=== PATIENT | female | born 1930 | race Caucasian/White ===

== ENCOUNTER 2017-12-28 19:45 | Inpatient (IN) | payer OTHER, MEDICARE ==
--- NOTE | 2017-12-28 19:48 | PDOC ---
History of Present Illness - General History Source: Patient Exam Limitations: No Limitations - History of Present Illness Initial Comments: 12/28/17 21:05 The patient is a 87 year old female brought via EMS and presenting with patient care manager, with a significant past medical history of right hip replacement, who presents to the ED after a fall 4 hours prior to presentation. She notes that she landed on her left side. On baseline the patient does ambulate with a walker but she notes that she was not able to get up on her own and has not been able to ambulate due to the pain. She denies any dizziness or tripping. She denies any head trauma, loss of consciousness or any other kind of injuries. The patient denies chest pain, shortness of breath, headache and dizziness. Denies fever, chills, nausea, vomiting, diarrhea or constipation. Denies dysuria , frequency, urgency and hematuria. Allergies: None Past surgical history: Right hip replacement Social History: No alcohol, tobacco or drug use reported PMD: Dr. Zachery Meek <Dev Miranda - Last Filed: 12/28/17 22:06> <Vivien Baker - Last Filed: 12/29/17 00:00> - General Chief Complaint: Injury Stated Complaint: FALL Time Seen by Provider: 12/28/17 19:48 Past History <Dev Miranda - Last Filed: 12/28/17 22:06> <Vivien Baker - Last Filed: 12/29/17 00:00> - Past Medical History Allergies/Adverse Reactions: Allergies Allergy/AdvReac Type Severity Reaction Status Date / Time No Known Allergies Allergy Unverified 12/28/17 19:46 Home Medications: Ambulatory Orders Aspirin [Ecotrin] 81 mg PO DAILY 12/28/17 Ibuprofen 400 mg PO ONCE 12/28/17 Review of Systems - Review of Systems Able to Perform ROS?: Yes Comments:: 12/28/17 21:04 GENERAL/CONSTITUTIONAL: No fever or chills. No weakness. HEAD, EYES, EARS, NOSE AND THROAT: No change in vision. No ear pain or discharge. No sore throat. GASTROINTESTINAL: No nausea, vomiting, diarrhea or constipation. GENITOURINARY: No dysuria, frequency, or change in urination. CARDIOVASCULAR: No chest pain or shortness of breath. RESPIRATORY: No cough, wheezing, or hemoptysis. MUSCULOSKELETAL: (+) Left hip pain. No neck or back pain. SKIN: No rash NEUROLOGIC: No headache, vertigo, loss of consciousness, or change in strength/ sensation. ENDOCRINE: No increased thirst. No abnormal weight change. HEMATOLOGIC/LYMPHATIC: No anemia, easy bleeding, or history of blood clots. ALLERGIC/IMMUNOLOGIC: No hives or skin allergy. <Dev Miranda - Last Filed: 12/28/17 22:06> *Physical Exam - Vital Signs Last Vital Signs Temp Pulse Resp BP Pulse Ox 97.8 F 88 16 121/84 100 12/28/17 19:48 12/28/17 19:48 12/28/17 19:48 12/28/17 19:48 12/28/17 19:48 - Physical Exam Comments: 12/28/17 21:04 Constitutional: Awake, alert, oriented. No acute distress. Head: Normocephalic. Atraumatic Eyes: PERRL. EOMI. Conjunctivae are not pale. ENT: Mucous membranes are moist and intact. Posterior pharynx without exudates or erythema. Uvula midline. Neck: Supple. Full ROM. No lymphadenopathy. Cardiovascular: Regular rate. Regular rhythm. S1, S2 regular. Distal pulses are 2+ and symmetric. Pulmonary/Chest: No evidence of respiratory distress. Clear to auscultation bilaterally No wheezing, rales or rhonchi. Abdominal: Soft and non-distended. There is no tenderness. No rebound, guarding or rigidity. No organomegaly. No palpable masses. Good bowel sounds. Back: No CVA tenderness. Musculoskeletal: (+) Left leg externally rotated and shortened, moderate tenderness to the anterior hip. 2+ Edema to mid anterior tibia surface bilaterally. No cyanosis. No clubbing. Nocalf tenderness. Radial/pedal pulses are intact and 2+ bilaterally Skin: Skin is warm and dry. No petechiae. No purpura. Neurological: Alert and oriented to person, place, and time. Cranial nerves II -XII are grossly intact. Normal speech. Strength is grossly symmetric. No sensory deficits. Psychiatric: Good eye contact. Normal interaction, affect and behavior. <Dev Miranda - Last Filed: 12/28/17 22:06> ED Treatment Course - LABORATORY CBC & Chemistry Diagram: 12/28/17 21:10 12/28/17 21:10 <Dev Miranda - Last Filed: 12/28/17 22:06> - LABORATORY CBC & Chemistry Diagram: 12/28/17 21:10 12/28/17 21:10 <Vivien Baker - Last Filed: 12/29/17 00:00> Progress Note - Progress Note Progress Note: Documentation has been prepared under my direction and personally reviewed by me in its entirety. I attest that this documented accurately reflects all work, treatment, procedures and medical decision making performed by me. <Vivien Baker - Last Filed: 12/29/17 00:00> Medical Decision Making - Medical Decision Making 12/28/17 23:48 As noted above, this 87-year-old woman presents with history of falling at home , impacting left hip area; this occurred approximately 4 PM earlier today. After the injury, patient was unable to weight-bear secondary to pain in her left hip area and there was no LOC; patient who was alert and oriented 3 denies headache, neck pain, chest or abdominal pain. Exam as noted Left hip/pelvis x-ray confirms a femoral neck fracture with varus deformity. Portable chest x-ray shows evidence of chronic interstitial changes; no infiltrate or effusions present. There is density of unclear etiology present in the lateral aspect of the right upper lobe. Electrocardiogram performed interpreted by me: Normal sinus rhythm at 76 bpm, intervals, axis and wave forms are all normal; no evidence of acute ST or T- wave abnormalities. Laboratory evaluation notable for white blood cell count of 14,900 with a predominance of neutrophils. The remainder of the CBC is normal. INR is also normal at 1.06. Chemistry profile is essentially normal except for evidence of mild prerenal azotemia with a BUN of 25 and creatinine 0.7. Urinalysis microscopic notable for 25 WBC, 25 RBC, 1+ bacteria. Urine sent for C&S Results discussed with the patient. She was initially unsure whether she would would consent to admission and surgery here; she asked for to be informed of her injury. She subsequently spoke to Dr. Meek by telephone and then consented for admission and treatment. Patient admitted to Dr.Yurkiw álvarez, [facility]. Case discussed with Dr.Oh of orthopedic service. Dr. Ledbetter will see patient in the morning. She should be NPO after midnight <Vivien Baker - Last Filed: 12/29/17 00:00> *DC/Admit/Observation/Transfer - Attestations Scribe Attestion: 12/28/17 21:05 Documentation prepared by Dev Miranda, acting as medical claims examiner for Vivien Baker MD <Dev Miranda - Last Filed: 12/28/17 22:06> - Discharge Dispostion Decision to Admit order: Yes <Viiven Baker - Last Filed: 12/29/17 00:00> Diagnosis at time of Disposition: Hip fracture Qualifiers: Encounter type: initial encounter Fracture type: closed Laterality: left Qualified Code(s): S72.002A - Fracture of unspecified part of neck of left femur , initial encounter for closed fracture - Discharge Dispostion Condition at time of disposition: Guarded
[2017-12-28] MEDS ORDERED: ACETAMINOPHEN 325 MG TABLET (FP) PO ONE (21:01)
[2017-12-28] MEDS ORDERED: ACETAMINOPHEN 325 MG TABLET (FP) ONE (21:03)
[2017-12-28 21:33] LABS: HEMATOCRIT 38.7 % (32.4-45.2); HEMOGLOBIN 12.9 GM/dl (10.7-15.3); MCHC 33.3 g/dl (32.0-36.0); MEAN PLT VOLUME 8.4 fl (7.5-11.1); PLATELET COUNT 268 K/MM3 (134-434); RDW 14.3 % (11.6-15.6); WHITE BLOOD COUNT 14.9 K/mm3 (4.0-10.8)
[2017-12-28 21:38] LABS: INR 1.06 (0.82-1.09); PROTHROMBIN TIME (PATIENT) 11.9 SEC (10.2-13.0)
[2017-12-28 21:44] LABS: ALBUMIN 3.8 g/dl (3.5-5.0); ALK PHOS 71 U/L (32-92); ANION GAP 8 MMOL/L (8-16); BILIRUBIN,TOTAL 0.4 mg/dl (0.2-1.0); BLOOD UREA NITROGEN 25 mg/dl (7-18); CALCIUM 9.1 mg/dl (8.4-10.2); CHLORIDE 102 mmol/L (98-107); CO2 26 mmol/L (22-28); CREATININE 0.7 mg/dl (0.6-1.3); GLUCOSE,RANDOM 113 mg/dl (74-106); POTASSIUM 4.1 mmol/L (3.5-5.1); SGOT/AST 21 U/L (10-42); SGPT/ALT 20 U/L (10-40); SODIUM 136 mmol/L (136-145); TOT PROT 7.1 g/dl (6.4-8.3)
[2017-12-28 21:58] LABS: PLATELET ESTIMATE ADEQUATE
[2017-12-28 22:45] LABS: PH,URINE 6.5 (4.5-8); URINE APPEARANCE Clear; URINE BILIRUBIN Negative (NEGATIVE); URINE COLOR Yellow; URINE GLUCOSE (UA) Negative (NEGATIVE); URINE KETONE 1+ (NEGATIVE); URINE LEUK ESTERASE TRACE (NEGATIVE); URINE NITRITE Negative (NEGATIVE); URINE PROTEIN Negative (NEGATIVE); URINE UROBILINOGEN 0.2 (0.2-1.0)
[2017-12-28 22:59] LABS: URINE BACTERIA 1+ /hpf (NEGATIVE)
[2017-12-29 00:44] VITALS: BMI 19.5
[2017-12-29] MEDS ORDERED: ACETAMINOPHEN 325 MG TABLET (FP) PO PRN (00:50)
[2017-12-29] MEDS ORDERED: oxyCODONE HCL 5 MG TABLET PO PRN (00:51)
[2017-12-29] MEDS ORDERED: oxyCODONE HCL 5 MG TABLET PO ONE (03:18)
[2017-12-29] MEDS: HEPARIN NA (PORCINE) 5,000 UNITS/ML 1ML VIAL SQ SCH ×2 (06:24→13:18)
[2017-12-29] MEDS: oxyCODONE HCL 5 MG TABLET PO PRN ×3 (07:36→20:00)
--- NOTE | 2017-12-29 07:56 | HP ---
CHIEF COMPLAINT: left hip pain PCP: Dr Meek HISTORY OF PRESENT ILLNESS:Patient is a 87 y/o female with a past surgical history of a right hip replacement. She reports yesterday (12/28/17) she tripped and fell onto her left hip. Patient is able to recall the full incident in detail and denies striking her head. Of note, patient does report feeling off balance within the past several months and was evaluated by a neurologist at [facility]. She underwent head ct and mri of brain which resulted as negative as per patient. She reports left hip pain and was brought to the emergency department for further evaluation. ER course was notable for: (1)xray of left hip/pelvis: +femoral neck fracture (2)chest xray: no infilitrate no effusions noted (3)ekg nsr Recent Travel: none PAST MEDICAL HISTORY:see hpi PAST SURGICAL HISTORY: see hpi Social History: resides at home with son Smoking:none Alcohol:none Drugs: none Family History: non-contributory to this admission Allergies No Known Allergies Allergy (Unverified 12/28/17 19:46) HOME MEDICATIONS: Home Medications Medication Instructions Recorded Aspirin [Ecotrin] 81 mg PO DAILY 12/28/17 Ibuprofen 400 mg PO ONCE 12/28/17 REVIEW OF SYSTEMS CONSTITUTIONAL: Absent: fever, chills, diaphoresis, generalized weakness, malaise, loss of appetite, weight change HEENT: Absent: rhinorrhea, nasal congestion, throat pain, throat swelling, difficulty swallowing, mouth swelling, ear pain, eye pain, visual changes CARDIOVASCULAR: Absent: chest pain, syncope, palpitations, irregular heart rate, lightheadedness , peripheral edema RESPIRATORY: Absent: cough, shortness of breath, dyspnea with exertion, orthopnea, wheezing, stridor, hemoptysis GASTROINTESTINAL: Absent: abdominal pain, abdominal distension, nausea, vomiting, diarrhea, constipation, melena, hematochezia GENITOURINARY: Absent: dysuria, frequency, urgency, hesitancy, hematuria, flank pain, genital pain MUSCULOSKELETAL: Present: left hip pain Absent: myalgia, arthralgia, joint swelling, back pain, neck pain SKIN: Absent: rash, itching, pallor HEMATOLOGIC/IMMUNOLOGIC: Absent: easy bleeding, easy bruising, lymphadenopathy, frequent infections ENDOCRINE: Absent: unexplained weight gain, unexplained weight loss, heat intolerance, cold intolerance NEUROLOGIC: Absent: headache, focal weakness or paresthesias, dizziness, unsteady gait, seizure, mental status changes, bladder or bowel incontinence PSYCHIATRIC: Absent: anxiety, depression, suicidal or homicidal ideation, hallucinations. PHYSICAL EXAMINATION Vital Signs - 24 hr 12/28/17 12/28/17 12/29/17 19:48 23:42 06:00 Temperature 97.8 F 97.7 F 98.1 F Pulse Rate 88 85 73 Respiratory 16 18 18 Rate Blood Pressure 121/84 146/71 152/73 O2 Sat by Pulse 100 99 99 Oximetry (%) GENERAL: Awake, alert, and fully oriented, in no acute distress. HEAD: Normal with no signs of trauma. EYES: Pupils equal, round and reactive to light, extraocular movements intact, sclera anicteric, conjunctiva clear. No lid lag. EARS, NOSE, THROAT: Ears normal, nares patent, oropharynx clear without exudates. dry mucous membranes. NECK: Normal range of motion, supple without lymphadenopathy, JVD, or masses. LUNGS: Breath sounds equal, clear to auscultation bilaterally. No wheezes, and no crackles. No accessory muscle use. HEART: Regular rate and rhythm, normal S1 and S2 without murmur, rub or gallop. ABDOMEN: Soft, nontender, not distended, normoactive bowel sounds, no guarding, no rebound, no masses. No hepatomegaly or splenomegaly. MUSCULOSKELETAL: Normal range of motion at all joints. No bony deformities or tenderness. No CVA tenderness. UPPER EXTREMITIES: 2+ pulses, warm, well-perfused. No cyanosis. No clubbing. No peripheral edema. LOWER EXTREMITIES: left lower extremity--> shortened, externally rotated, 2+ pedal pulses, warm, well-perfused. No calf tenderness. No peripheral edema. NEUROLOGICAL: Cranial nerves II-XII intact. Normal speech. Normal gait. PSYCHIATRIC: Cooperative. Good eye contact. Appropriate mood and affect. SKIN: Warm, dry, normal turgor, no rashes or lesions noted, normal capillary refill. Laboratory Results - last 24 hr 12/28/17 12/28/17 12/28/17 21:10 21:10 21:10 WBC 14.9 H RBC 4.30 Hgb 12.9 Hct 38.7 MCV 90.0 MCH 30.0 MCHC 33.3 RDW 14.3 Plt Count 268 MPV 8.4 Absolute Neuts (auto) 13.6 Neutrophils % No Result Required. Neutrophils % (Manual) 93.0 H* Band Neutrophils % 2.0 Lymphocytes % No Result Required. Lymphocytes % (Manual) 3.0 L Monocytes % (Manual) 2 L Platelet Estimate Adequate PT with INR 11.9 INR 1.06 Sodium 136 Potassium 4.1 Chloride 102 Carbon Dioxide 26 Anion Gap 8 BUN 25 H Creatinine 0.7 Creat Clearance w eGFR > 60 Random Glucose 113 H Calcium 9.1 Total Bilirubin 0.4 AST 21 ALT 20 Alkaline Phosphatase 71 Total Protein 7.1 Albumin 3.8 Urine Color Urine Appearance Urine pH Ur Specific [place] Urine Protein Urine Glucose (UA) Urine Ketones Urine Blood Urine Nitrite Urine Bilirubin Urine Urobilinogen Ur Leukocyte Esterase Urine RBC Urine WBC Urine Bacteria Anti-A Titer Blood Type Antibody Screen 12/28/17 12/28/17 12/28/17 22:38 23:06 23:30 WBC RBC Hgb Hct MCV MCH MCHC RDW Plt Count MPV Absolute Neuts (auto) Neutrophils % Neutrophils % (Manual) Band Neutrophils % Lymphocytes % Lymphocytes % (Manual) Monocytes % (Manual) Platelet Estimate PT with INR INR Sodium Potassium Chloride Carbon Dioxide Anion Gap BUN Creatinine Creat Clearance w eGFR Random Glucose Calcium Total Bilirubin AST ALT Alkaline Phosphatase Total Protein Albumin Urine Color Yellow Urine Appearance Clear Urine pH 6.5 Ur Specific [place] 1.020 Urine Protein Negative Urine Glucose (UA) Negative Urine Ketones 1+ H Urine Blood Trace-lysed H Urine Nitrite Negative Urine Bilirubin Negative Urine Urobilinogen 0.2 Ur Leukocyte Esterase Trace H Urine RBC 2-5 Urine WBC 2-5 Urine Bacteria 1+ Anti-A Titer Cancelled Blood Type Cancelled O POSITIVE Antibody Screen Cancelled Negative 12/29/17 00:00 WBC RBC Hgb Hct MCV MCH MCHC RDW Plt Count MPV Absolute Neuts (auto) Neutrophils % Neutrophils % (Manual) Band Neutrophils % Lymphocytes % Lymphocytes % (Manual) Monocytes % (Manual) Platelet Estimate PT with INR INR Sodium Potassium Chloride Carbon Dioxide Anion Gap BUN Creatinine Creat Clearance w eGFR Random Glucose Calcium Total Bilirubin AST ALT Alkaline Phosphatase Total Protein Albumin Urine Color Urine Appearance Urine pH Ur Specific [place] Urine Protein Urine Glucose (UA) Urine Ketones Urine Blood Urine Nitrite Urine Bilirubin Urine Urobilinogen Ur Leukocyte Esterase Urine RBC Urine WBC Urine Bacteria Anti-A Titer Blood Type O POSITIVE Antibody Screen ASSESSMENT/PLAN: 1) MS left hip fracture s/p mechanical fall - case discussed with Dr Ledbetter, orthopedist, patient is pending OR today - prn pain medication - npo-->ivf 2) uti - urinalysis is notable for +1 leukocytes, will start rocephin pending urine culture - leukocytosis is noted, patient is afebrile, close following f/e/n - npo-->ivf - replete electrolytes prn ppx - no chemical ac pending OR-->mechanical AC only - pepcid patient is medically optimized for emergent procedure dispo: pt requires inpatient admission Visit type - Emergency Visit Emergency Visit: Yes ED Registration Date: 12/28/17 Care time: The patient presented to the Emergency Department on the above date and was hospitalized for further evaluation of their emergent condition. - New Patient This patient is new to me today: Yes Date on this admission: 12/29/17 - Critical Care Critical Care patient: No
--- NOTE | 2017-12-29 09:27 | EKG ---
Test Reason : Blood Pressure : / mmHG Vent. Rate : 076 BPM Atrial Rate : 076 BPM P-R Int : 134 ms QRS Dur : 090 ms QT Int : 398 ms P-R-T Axes : 070 039 045 degrees QTc Int : 447 ms NORMAL SINUS RHYTHM POSSIBLE LEFT ATRIAL ENLARGEMENT NO PREVIOUS ECGS AVAILABLE Confirmed by ALENA SEGOVIA, LEOBARDO ([id number]) on 12/29/2017 9:27:00 AM Referred By: DR BAPTISTE Confirmed By:LEOBARDO CARVAJAL MD
[2017-12-29] MEDS: DEXTROSE 5%-NORMAL SALINE 1,000 ML IV SCH (10:08)
[2017-12-29 11:02] LABS: EOS % 0.7 % (0-4.5); HEMATOCRIT 36.4 % (32.4-45.2); HEMOGLOBIN 12.2 GM/dl (10.7-15.3); LYMPH % 10.3 % (8-40); MCH 30.2 pg (25.7-33.7); MCHC 33.5 g/dl (32.0-36.0); MEAN CELL VOLUME 90.1 fl (80-96); MEAN PLT VOLUME 8.3 fl (7.5-11.1); MONO % 6.5 % (3.8-10.2); NEUT % 82.5 % (42.8-82.8); PLATELET COUNT 257 K/MM3 (134-434); RBC 4.04 M/mm3 (3.60-5.2); RDW 14.2 % (11.6-15.6); WHITE BLOOD COUNT 9.4 K/mm3 (4.0-10.8)
[2017-12-29 11:13] LABS: ALBUMIN 3.7 g/dl (3.5-5.0); ALK PHOS 77 U/L (32-92); ANION GAP 6 MMOL/L (8-16); BILIRUBIN,TOTAL 0.8 mg/dl (0.2-1.0); BLOOD UREA NITROGEN 20 mg/dl (7-18); CALCIUM 8.9 mg/dl (8.4-10.2); CHLORIDE 102 mmol/L (98-107); CO2 29 mmol/L (22-28); CREATININE 0.6 mg/dl (0.6-1.3); GLUCOSE,RANDOM 103 mg/dl (74-106); MAGNESIUM 1.9 mg/dL (1.8-2.4); POTASSIUM 3.9 mmol/L (3.5-5.1); SGOT/AST 21 U/L (10-42); SGPT/ALT 17 U/L (10-40); SODIUM 137 mmol/L (136-145); TOT PROT 6.9 g/dl (6.4-8.3)
[2017-12-29] MEDS: FAMOTIDINE 20 MG/50 ML IVPB 20 MG/50 ML MG IVPB SCH ×2 (11:15→21:14)
[2017-12-29] MEDS: CEFTRIAXONE 1 GM/50 ML BAG IVPB SCH (11:15)
[2017-12-29] MEDS ORDERED: CHLORHEXIDINE GLUCONATE 4% CLEANSER FOR DECOLONIZATION TP ONE (12:00)
[2017-12-29] MEDS ORDERED: morphine CARPU-JECT 2 MG/1 ML DISP.SYRIN IVPUSH PRN (12:07)
[2017-12-29] MEDS ORDERED: ACETAMINOPHEN 1000 MG/100 ML VIAL (NON FORMULARY) IVPB PRN (12:08)
[2017-12-29] MEDS: LACTOBACILLUS ACIDOPHILUS 1 TABLET PO SCH (12:35)
[2017-12-29] MEDS ORDERED: MIDAZOLAM HCL 2 MG/2 ML SINGLE DOSE VIAL ONE ×2 (15:54→17:56)
[2017-12-29] MEDS ORDERED: ePHEDrine SULFATE 50 MG/1 ML AMPULE ONE (16:35)
[2017-12-29] MEDS ORDERED: ceFAZolin SODIUM 1 GM VIAL ONE (16:35)
[2017-12-29] MEDS ORDERED: TRANEXAMIC ACID 1000 MG/10 ML VIAL ONE (16:39)
[2017-12-29] MEDS: CALCIUM 500MG/VIT-D 200 UNITS COMBO TABLET (FP) PO SCH (21:14)
[2017-12-30] MEDS ORDERED: CEFAZOLIN 1 GM/D5W 1 GM/50 ML BAG IVPB SCH (00:30)
[2017-12-30] MEDS: CEFAZOLIN 1 GM/D5W 1 GM/50 ML BAG IVPB SCH ×2 (00:30→08:05)
[2017-12-30] MEDS: oxyCODONE HCL 5 MG TABLET PO PRN (03:00)
[2017-12-30] MEDS: HEPARIN NA (PORCINE) 5,000 UNITS/ML 1ML VIAL SQ SCH (06:23)
--- NOTE | 2017-12-30 07:22 | OP ---
DATE OF OPERATION: DATE OF DICTATION: 12/29/2017 PREOPERATIVE DIAGNOSIS: Left hip basicervical fracture. POSTOPERATIVE DIAGNOSIS: Left hip basicervical fracture. PROCEDURE: Left hip hemiarthroplasty. SURGEON: Kashif Santillan MD ANESTHESIA: Spinal. POSTOPERATIVE CONDITION: Stable. COMPLICATIONS: None. DESK ATTENDANT: EMMA Harrison, whose skilled full assistance was necessary for the safe and timely performance of this procedure. Ms. Figueredo was able to help provide limb positioning, retraction, assist in the insertion and fixation of orthopaedic fixation hardware. IMPLANTS: Cheryl cemented stem size 2 with +5 neck insert and bipolar 46-mm head. INDICATIONS: This is a pleasant 87-year-old female who suffered a fall resulting in a displaced to avoid internally rotating her feet. The patient was found to have a displaced basicervical fracture with extensions into both femoral neck and into the greater and lesser trochanter. Given these findings, treatment options were discussed including IM nail, hemiarthroplasty, and total hip arthroplasty. Given the patient is a household ambulator but not high-demand ambulator and given the fact of the comminution present, it was felt that a hemiarthroplasty would provide for the best samaritan of limb anatomy and preserve walking ability while avoiding excessive morbidity. I reviewed surgical risks in detail with the patient including bleeding, infection, neurovascular injury, need for further surgery, postoperative pain or stiffness, limb length discrepancy, rotational deformity, hip instability, periprosthetic fracture. We reviewed medical risks such as heart attack, stroke, DVT, PE, and . I discussed the use of perioperative antibiotic and DVT prophylaxis. I reviewed the postoperative recovery process and need for physical therapy. I addressed all of the patient's questions and concerns. She voiced understanding and elected to proceed. DESCRIPTION OF PROCEDURE: The patient was brought to the operating room where spinal anesthetic was administered. The patient was placed into the lateral decubitus position careful to pad all of the bony prominences. The left lower extremity was then prepped and draped in the usual sterile fashion. A preoperative dose of antibiotics was given, and the usual time-out procedure was performed. At this time, an incision was planned out over the greater trochanter. This was carried down through the skin and subcutaneous tissue. Blunt spreading was used to expose the fascia. The fascia was then split in line with its fibers. A Charnley retractor was placed exposing the greater trochanter. Immediately, a large hematoma was encountered. The bursa was then reflected posteriorly. This exposed the greater trochanter, which was now seen to be highly comminuted. Dissecting posteriorly, some of the fracture fragments, which were loose were now excised. The main fragment of the greater trochanter was now reflected anteriorly. It was essentially a shallow head bone. The posterior aspect of the neck was now cut with an oscillating saw. The fracture extended down to the lesser trochanter, which required no further cut anteriorly. The corkscrew was now inserted into the neck and into the head. Electrocautery was used to dissect any remaining soft tissue attachments. The head was excised. A 40-mm head was measured. A trial was then placed in, and good suction was able to be achieved. Any remaining comminution was now debrided. Two No. 1 Vicryl sutures were placed into the remnant of the posterior capsule, which was somewhat shredded as a result of the fracture. Attention was now turned to the proximal femur. A femoral elevator was placed. A canal finder was passed down the canal. The broaching then started with a size 1 and progressed to a size 2 when good fit was achieved. The broach was now removed. A cement restrictor was inserted. The cement was then injected into the canal. The stem was then inserted, and the cement was allowed to dry. The trial components were then inserted up to a +5 neck where good stability was achieved. At this point, the trial components were removed. The bipolar head was then malleted and then inserted and placed onto the [place] taper. The hip was now reduced and passed through a range of motion and once again found to be stable. The greater trochanter fragment was now drilled with some 2-0 drill holes. Utilizing No. 2 FiberWire suture, the fragment was fixed into place. The capsule was also fixed into the fragment in order to restore the posterior stability. The wound was copiously pulse lavaged at this point. The fascia was repaired using No. 1 Vicryl. The subcutaneous tissue was closed to approximate the deep using 0 Vicryl and subcutaneous tissue using 2-0 Vicryl. The skin was closed using running 3-0 nylon. Sterile dressings were placed. The patient was placed onto an abduction pillow. She was transferred to the recovery room in stable condition. KASHIF SANTILLAN M.D. [id number]
[2017-12-30 09:06] LABS: ANION GAP 6 MMOL/L (8-16); BLOOD UREA NITROGEN 16 mg/dl (7-18); CALCIUM 8.3 mg/dl (8.4-10.2); CHLORIDE 100 mmol/L (98-107); CO2 26 mmol/L (22-28); CREATININE 0.7 mg/dl (0.6-1.3); GLUCOSE,RANDOM 159 mg/dl (74-106); MAGNESIUM 1.5 mg/dL (1.8-2.4); PHOSPHOROUS 2.4 mg/dl (2.5-4.6); POTASSIUM 3.8 mmol/L (3.5-5.1); SODIUM 132 mmol/L (136-145)
[2017-12-30 09:09] LABS: EOS % 0.1 % (0-4.5); HEMATOCRIT 27.4 % (32.4-45.2); HEMOGLOBIN 9.2 GM/dl (10.7-15.3); LYMPH % 5.9 % (8-40); MCH 30.5 pg (25.7-33.7); MCHC 33.6 g/dl (32.0-36.0); MEAN CELL VOLUME 90.5 fl (80-96); MEAN PLT VOLUME 8.4 fl (7.5-11.1); MONO % 8.6 % (3.8-10.2); NEUT % 85.4 % (42.8-82.8); PLATELET COUNT 229 K/MM3 (134-434); RBC 3.02 M/mm3 (3.60-5.2); RDW 13.9 % (11.6-15.6); WHITE BLOOD COUNT 11.1 K/mm3 (4.0-10.8)
[2017-12-30] MEDS: CEFTRIAXONE 1 GM/50 ML BAG IVPB SCH (09:10)
[2017-12-30] MEDS: CALCIUM 500MG/VIT-D 200 UNITS COMBO TABLET (FP) PO SCH ×2 (09:23→21:49)
[2017-12-30] MEDS: LACTOBACILLUS ACIDOPHILUS 1 TABLET PO SCH (09:23)
[2017-12-30] MEDS: DEXTROSE 5%-NORMAL SALINE 1,000 ML IV SCH (09:30)
[2017-12-30] MEDS ORDERED: ENOXAPARIN NA (PORCINE) 40 MG/0.4 ML DISP.SYRIN SQ SCH (10:00)
--- NOTE | 2017-12-30 10:09 | PN ---
Physical Exam: SUBJECTIVE: Patient seen and examined. Feels a dull ache in left hip. Pain well- managed presently. OBJECTIVE: Vital Signs Period Temp Pulse Resp BP Sys/Downing Pulse Ox Last 24 Hr 97.6 F-98.3 F 70-96 -18 99-141/41-63 96-100 GENERAL: The patient is awake, alert, and fully oriented, in no acute distress. LUNGS: Breath sounds equal, clear to auscultation bilaterally, no wheezes, no crackles, no accessory muscle use. HEART: Regular rate and rhythm, S1, S2 ABDOMEN: Soft, nontender, nondistended LOWER EXTREMITIES: Wedge immobilizer, SCDs/TEDs bilaterally; toes are warm, well -perfused, can flex and extend, 5/5 sensory; 1+ left pedal edema NEUROLOGICAL: Cranial nerves II through XII grossly intact. Normal speech. SKIN: Warm, dry, normal turgor Laboratory Results - last 24 hr 12/29/17 12/29/17 12/30/17 10:20 10:20 07:25 WBC 9.4 11.1 H RBC 4.04 3.02 L Hgb 12.2 9.2 L Hct 36.4 27.4 L D MCV 90.1 90.5 MCH 30.2 30.5 MCHC 33.5 33.6 RDW 14.2 13.9 Plt Count 257 229 MPV 8.3 8.4 Absolute Neuts (auto) 7.7 9.4 Neutrophils % 82.5 85.4 H Lymphocytes % 10.3 5.9 L Monocytes % 6.5 8.6 Eosinophils % 0.7 0.1 Basophils % 0.0 0.0 Sodium 137 Potassium 3.9 Chloride 102 Carbon Dioxide 29 H Anion Gap 6 L BUN 20 H Creatinine 0.6 Creat Clearance w eGFR > 60 Random Glucose 103 Calcium 8.9 Phosphorus 3.0 Magnesium 1.9 Total Bilirubin 0.8 AST 21 ALT 17 Alkaline Phosphatase 77 Total Protein 6.9 Albumin 3.7 12/30/17 07:25 WBC RBC Hgb Hct MCV MCH MCHC RDW Plt Count MPV Absolute Neuts (auto) Neutrophils % Lymphocytes % Monocytes % Eosinophils % Basophils % Sodium 132 L Potassium 3.8 Chloride 100 Carbon Dioxide 26 Anion Gap 6 L BUN 16 Creatinine 0.7 Creat Clearance w eGFR > 60 Random Glucose 159 H D Calcium 8.3 L Phosphorus 2.4 L Magnesium 1.5 L Total Bilirubin AST ALT Alkaline Phosphatase Total Protein Albumin Active Medications Generic Name Dose Route Start Last Admin Trade Name Jose Juanq PRN Reason Stop Dose Admin Acetaminophen 650 mg 12/29/17 00:50 12/29/17 20:00 Tylenol - PO 650 mg Q6H PRN Administration PAIN LEVEL 1-5 Acetaminophen 1,000 mg 12/29/17 12:08 12/30/17 07:09 Ofirmev Injection - IVPB 1,000 mg Q6H PRN Administration PAIN LEVEL 1-5 Calcium Carbonate/Cholecalciferol 1 tab 12/29/17 22:00 12/29/17 21:14 Os-Ramesh 500+D - PO 1 tab BID SHREYAS Administration Enoxaparin Sodium 40 mg 12/30/17 10:00 Lovenox - SQ DAILY SHREYAS Heparin Sodium (Porcine) 5,000 unit 12/29/17 06:00 12/30/17 06:23 Heparin - SQ Not Given TID SHREYAS Dextrose/Sodium Chloride 1,000 mls @ 75 mls/hr 12/29/17 09:15 12/29/17 10:08 D5-Ns - IV 75 mls/hr ASDIR SHREYAS Administration Ceftriaxone Sodium 1 gm in 50 mls @ 200 mls/hr 12/29/17 10:45 12/29/17 11:15 Rocephin 1gm Ivpb (Pre-Docked) IVPB 200 mls/hr DAILY SHREYAS Administration Protocol Famotidine/Sodium Chloride 20 mg in 50 mls @ 100 mls/hr 12/29/17 11:00 21:14 Pepcid 20 Mg Premixed Ivpb - IVPB 100 mls/hr BID SHREYAS Administration Lactobacillus Acidophilus 1 tab 12/29/17 12:15 12/29/17 12:35 Bacid - PO 1 tab DAILY SHREYAS Administration Morphine Sulfate 2 mg 12/29/17 12:07 Morphine Injection - IVPUSH Q6H PRN PAIN LEVEL 7 - 10 FOR BREAK TH Oxycodone HCl 5 mg 12/29/17 03:18 12/30/17 03:00 Roxicodone - PO 5 mg Q6H PRN Administration PAIN LEVEL 6-10 ASSESSMENT/PLAN Left hip fracture s/p hemiarthroplasty --POD #1 --perioperative antibiotics complete --pain well-managed with PO meds --incentive spirometry Hypomagnesemia --repleted DVT prophylaxis: subq lovenox Physical therapy Dispo: would like to go home with full time staff interpreter aide. Full code. Visit type - Emergency Visit Emergency Visit: Yes ED Registration Date: 12/28/17 Care time: The patient presented to the Emergency Department on the above date and was hospitalized for further evaluation of their emergent condition. - New Patient This patient is new to me today: Yes Date on this admission: 12/30/17 - Critical Care Critical Care patient: No
[2017-12-30] MEDS ORDERED: MAGNESIUM SULF 50% (8.12 MEQ/2 ML-1 GM VIAL) IVPB ONE (10:13)
[2017-12-30] MEDS: FAMOTIDINE 20 MG/50 ML IVPB 20 MG/50 ML MG IVPB SCH (10:15)
--- NOTE | 2017-12-30 12:07 | PN ---
Progress Note (short form) - Note Progress Note: Pt lying in bed. Comf at rest. Pain with any motion. Last Vital Signs Temp Pulse Resp BP Pulse Ox 98.3 F 88 17 100/49 L 98 12/30/17 10:00 12/30/17 10:00 12/30/17 10:00 12/30/17 10:00 12/30/17 10:00 LLE dressings cdi calves soft NT NVID Abnormal Lab Results 12/30/17 12/30/17 07:25 07:25 WBC 11.1 H RBC 3.02 L Hgb 9.2 L Hct 27.4 L D Neutrophils % 85.4 H Lymphocytes % 5.9 L Sodium 132 L Anion Gap 6 L Random Glucose 159 H D Calcium 8.3 L Phosphorus 2.4 L Magnesium 1.5 L a/p POD 1 L hip hemiarthroplasty -pain control -dvt proph -hct 27, started iron PO, will follow -oob/PT -dispo planning, pt would like to go home with export manager aide, advised this is a reasonable course of action as she has home modifications for handicap access
[2017-12-30] MEDS: FERROUS SO4 325 MG TABLET (FP) PO SCH (16:55)
[2017-12-30] MEDS ORDERED: FERROUS SO4 325 MG TABLET (FP) PO SCH ×2 (17:30)
[2017-12-30] MEDS ORDERED: oxyCODONE HCL 5 MG TABLET PO PRN (22:27)
[2017-12-31] MEDS: ACETAMINOPHEN 325 MG TABLET (FP) PO PRN ×2 (05:57→18:13)
[2017-12-31] MEDS: FERROUS SO4 325 MG TABLET (FP) PO SCH ×2 (08:17→18:13)
[2017-12-31] MEDS: CALCIUM 500MG/VIT-D 200 UNITS COMBO TABLET (FP) PO SCH ×2 (09:03→21:17)
[2017-12-31] MEDS: ENOXAPARIN NA (PORCINE) 40 MG/0.4 ML DISP.SYRIN SQ SCH (09:03)
[2017-12-31] MEDS: MULTIVITAMINS (DAILY MVI) TABLET (FP) PO SCH (09:03)
--- NOTE | 2017-12-31 09:07 | PN ---
Physical Exam: SUBJECTIVE: Patient seen and examined. Pt reports not feeling well today, c/o generalized weakness, denies cp, sob, palpitations, abdominal pain, N/V/D or urinary symptoms. OBJECTIVE: Vital Signs Period Temp Pulse Resp BP Sys/Downing Pulse Ox Last 24 Hr 98.3 F-100.0 F 83-103 17-18 100-110/49-52 94-98 GENERAL: The patient is awake, alert, and fully oriented, in no acute distress. HEAD: Normal with no signs of trauma. EYES: PERRL, extraocular movements intact, sclera anicteric, conjunctiva clear. No ptosis. ENT: Ears normal, nares patent, oropharynx clear without exudates, moist mucous membranes. NECK: Trachea midline, full range of motion, supple. LUNGS: Breath sounds equal, clear to auscultation bilaterally, no wheezes, no crackles, no accessory muscle use. HEART: Regular rate and rhythm, S1, S2 without murmur, rub or gallop. ABDOMEN: Soft, nontender, nondistended, normoactive bowel sounds, no guarding, no rebound, no hepatosplenomegaly, no masses. EXTREMITIES: Left hip dsg intact, 1-2+ ankle edema, LT>Rt, 2+ pulses, warm, well -perfused, NEUROLOGICAL: Cranial nerves II through XII grossly intact. Normal speech, gait not observed. PSYCH: Normal mood, normal affect. SKIN: Warm, dry, normal turgor, no rashes or lesions noted Laboratory Results - last 24 hr 12/30/17 12/30/17 07:25 07:25 WBC 11.1 H RBC 3.02 L Hgb 9.2 L Hct 27.4 L D MCV 90.5 MCH 30.5 MCHC 33.6 RDW 13.9 Plt Count 229 MPV 8.4 Absolute Neuts (auto) 9.4 Neutrophils % 85.4 H Lymphocytes % 5.9 L Monocytes % 8.6 Eosinophils % 0.1 Basophils % 0.0 Sodium 132 L Potassium 3.8 Chloride 100 Carbon Dioxide 26 Anion Gap 6 L BUN 16 Creatinine 0.7 Creat Clearance w eGFR > 60 Random Glucose 159 H D Calcium 8.3 L Phosphorus 2.4 L Magnesium 1.5 L Active Medications Generic Name Dose Route Start Last Admin Trade Name Freq PRN Reason Stop Dose Admin Acetaminophen 650 mg 12/30/17 22:28 12/31/17 05:57 Tylenol - PO 650 mg Q6H PRN Administration FEVER Calcium Carbonate/Cholecalciferol 1 tab 12/30/17 22:00 12/31/17 09:03 Os-Ramesh 500+D - PO 1 tab BID SHREYAS Administration Enoxaparin Sodium 40 mg 12/31/17 10:00 12/31/17 09:03 Lovenox - SQ 40 mg DAILY SHREYAS Administration Ferrous Sulfate 325 mg 12/30/17 17:30 12/31/17 08:17 Feosol - PO 325 mg BIDWM SHREYAS Administration Multivitamins/Minerals/Vitamin C 1 tab 12/31/17 10:00 12/31/17 09:03 Tab-A-Vit - PO 1 tab DAILY SHREYAS Administration Oxycodone HCl 2.5 mg 12/30/17 22:27 Roxicodone - PO Q6H PRN PAIN LEVEL 1-5 Oxycodone HCl 5 mg 12/30/17 22:27 Roxicodone - PO Q6H PRN PAIN LEVEL 6-10 *IMAGING X'ray of left hip/pelvis: +femoral neck fracture chest xray: no infiltrate no effusions noted EKG : NSR Microbiology 12/29/17 08:00 Urine - Urine Clean Catch Urine Culture - Final Contaminated: Please Repeat ASSESSMENT/PLAN: Patient is a 87 y/o female with a past surgical history of a right hip replacement. Admitted with Left femoral neck fracture after a mechanical fall. *Left hip fracture s/p hemiarthroplasty -POD #2 - PT eval done - pain control - encouraged to use incentive spirometry - bowel regimen - low grade fever with leukocytosis - will recheck UA -will f/u on CBC * Acute blood loss anemia likely due to hip sx - will cont on Fe pills - will check stool OB - will f/u on CBC *Hypomagnesemia- resolved - s/p replacement - will f/u on Forestry Biology Specialist * F/E/N: Regular diet Replace electrolytes as needed *DVT prophylaxis: subq Lovenox Dispo: Pt would like to go home with time study analyst aide, pt is not medically stable for discharge.Requires Inpatient Care. Visit type - Emergency Visit Emergency Visit: Yes ED Registration Date: 12/28/17 Care time: The patient presented to the Emergency Department on the above date and was hospitalized for further evaluation of their emergent condition. - New Patient This patient is new to me today: Yes Date on this admission: 12/31/17 - Critical Care Critical Care patient: No
[2017-12-31 09:32] LABS: BASO % 0.2 % (0-2.0); EOS % 0.3 % (0-4.5); HEMATOCRIT 27.2 % (32.4-45.2); HEMOGLOBIN 8.9 GM/dl (10.7-15.3); LYMPH % 7.6 % (8-40); MCH 29.9 pg (25.7-33.7); MCHC 32.5 g/dl (32.0-36.0); MEAN CELL VOLUME 91.7 fl (80-96); MEAN PLT VOLUME 8.8 fl (7.5-11.1); MONO % 8.1 % (3.8-10.2); NEUT % 83.8 % (42.8-82.8); PLATELET COUNT 219 K/MM3 (134-434); RBC 2.97 M/mm3 (3.60-5.2); RDW 14.8 % (11.6-15.6); WHITE BLOOD COUNT 14.2 K/mm3 (4.0-10.8)
[2017-12-31 09:45] LABS: ALBUMIN 2.7 g/dl (3.5-5.0); ALK PHOS 56 U/L (32-92); ANION GAP 8 MMOL/L (8-16); BILIRUBIN,TOTAL 0.6 mg/dl (0.2-1.0); BLOOD UREA NITROGEN 16 mg/dl (7-18); CALCIUM 8.3 mg/dl (8.4-10.2); CHLORIDE 101 mmol/L (98-107); CO2 27 mmol/L (22-28); CREATININE 0.5 mg/dl (0.6-1.3); GLUCOSE,RANDOM 90 mg/dl (74-106); POTASSIUM 3.8 mmol/L (3.5-5.1); SGOT/AST 22 U/L (10-42); SGPT/ALT 12 U/L (10-40); SODIUM 136 mmol/L (136-145); TOT PROT 5.5 g/dl (6.4-8.3)
[2017-12-31] MEDS ORDERED: MULTIVITAMINS (DAILY MVI) TABLET (FP) PO SCH ×2 (10:00)
[2017-12-31] MEDS: oxyCODONE HCL 5 MG TABLET PO PRN (20:16)
[2017-12-31 20:38] LABS: PH,URINE 5.5 (4.5-8); URINE APPEARANCE Clear; URINE BILIRUBIN Negative (NEGATIVE); URINE COLOR Yellow; URINE GLUCOSE (UA) Negative (NEGATIVE); URINE KETONE Negative (NEGATIVE); URINE LEUK ESTERASE Negative (NEGATIVE); URINE NITRITE Negative (NEGATIVE); URINE PROTEIN Negative (NEGATIVE); URINE UROBILINOGEN 0.2 (0.2-1.0)
[2017-12-31 21:01] LABS: EPI CELLS 1+ /HPF
[2017-12-31 21:02] LABS: AMORP URATES 1+ /hpf (NONE SEEN); URINE BACTERIA 1+ /hpf (NEGATIVE)
[2018-01-01] MEDS: ACETAMINOPHEN 325 MG TABLET (FP) PO PRN (05:59)
[2018-01-01 08:13] LABS: EOS % 0.5 % (0-4.5); HEMATOCRIT 23.6 % (32.4-45.2); MEAN CELL VOLUME 90.6 fl (80-96)
[2018-01-01] MEDS: oxyCODONE HCL 5 MG TABLET PO PRN ×2 (08:13→15:23)
[2018-01-01] MEDS: FERROUS SO4 325 MG TABLET (FP) PO SCH ×2 (08:13→17:03)
--- NOTE | 2018-01-01 08:26 | PN ---
Physical Exam: SUBJECTIVE: Patient seen and examined, reports feeling tired, denies any shortness of breath, does report pain to left lower extremity upon movement, patient denies any paresthesia OBJECTIVE:Patient is a 87-year-old female with a past Surgical history of right hip replacement, patient was admitted from the emergency department to the medical surgical floor For a left femoral neck fracture secondary to a mechanical fall. Patient is S/P left hemiarthroplasty 12/29/2017, Dr. Ledbetter spinal anesthesia Vital Signs Period Temp Pulse Resp BP Sys/Downing Pulse Ox Last 24 Hr 97.9 F-102.7 F 78-114 17-19 88-132/42-59 95-98 GENERAL: The patient is awake, alert, and fully oriented, in no acute distress. HEAD: Normal with no signs of trauma. EYES: PERRL, extraocular movements intact, sclera anicteric, conjunctiva clear. No ptosis. ENT: Ears normal, nares patent, oropharynx clear without exudates, moist mucous membranes. NECK: Trachea midline, full range of motion, supple. LUNGS: Breath sounds equal, clear to auscultation bilaterally, no wheezes, no crackles, no accessory muscle use. HEART: Regular rate and rhythm, S1, S2 without murmur, rub or gallop. ABDOMEN: Soft, nontender, nondistended, normoactive bowel sounds, no guarding, no rebound, no hepatosplenomegaly, no masses. EXTREMITIES: 2+ pulses, warm, well-perfused, no edema. LEFT LOWER EXTREMITY: aguacel dressing to left lateral hip, less than 3 second cappillary refill, +3 pedal pulse NEUROLOGICAL: Cranial nerves II through XII grossly intact. Normal speech, gait not observed. PSYCH: Normal mood, normal affect. SKIN: Warm, dry, normal turgor, no rashes or lesions noted Laboratory Results - last 24 hr CBC WBC 12.9 K/mm3 (4.0-10.8) H 01/01/18 07:20 RBC 2.60 M/mm3 (3.60-5.2) L 01/01/18 07:20 Hgb 7.9 GM/dl (10.7-15.3) L 01/01/18 07:20 Hct 23.6 % (32.4-45.2) L 01/01/18 07:20 MCV 90.6 fl (80-96) 01/01/18 07:20 MCH 30.2 pg (25.7-33.7) 01/01/18 07:20 MCHC 33.3 g/dl (32.0-36.0) 01/01/18 07:20 RDW 14.6 % (11.6-15.6) 01/01/18 07:20 Plt Count 232 K/MM3 (134-434) 01/01/18 07:20 MPV 8.9 fl (7.5-11.1) 01/01/18 07:20 Absolute Neuts (auto) 10.4 K/mm3 01/01/18 07:20 Neutrophils % 80.4 % (42.8-82.8) 01/01/18 07:20 Neutrophils % (Manual) 93.0 % (42.8-82.8) H* 12/28/17 21:10 Band Neutrophils % 2.0 % (0-10) 12/28/17 21:10 Lymphocytes % 8.9 % (8-40) 01/01/18 07:20 Lymphocytes % (Manual) 3.0 % (8-40) L 12/28/17 21:10 Monocytes % 10.0 % (3.8-10.2) 01/01/18 07:20 Monocytes % (Manual) 2 % (3.8-10.2) L 12/28/17 21:10 Eosinophils % 0.5 % (0-4.5) 01/01/18 07:20 Basophils % 0.2 % (0-2.0) 01/01/18 07:20 Platelet Estimate Adequate 12/28/17 21:10 CMP Sodium 136 mmol/L (136-145) 12/31/17 08:00 Potassium 3.8 mmol/L (3.5-5.1) 12/31/17 08:00 Chloride 101 mmol/L (98-107) 12/31/17 08:00 Carbon Dioxide 27 mmol/L (22-28) 12/31/17 08:00 Anion Gap 8 MMOL/L (8-16) 12/31/17 08:00 BUN 16 mg/dl (7-18) 12/31/17 08:00 Creatinine 0.5 mg/dl (0.6-1.3) L 12/31/17 08:00 Creat Clearance w eGFR > 60 (>60) 12/31/17 08:00 Random Glucose 90 mg/dl (74-106) D 12/31/17 08:00 Lactic Acid 1.5 mmol/L (0.4-2.0) 12/31/17 17:55 Calcium 8.3 mg/dl (8.4-10.2) L 12/31/17 08:00 Phosphorus 2.4 mg/dl (2.5-4.6) L 12/30/17 07:25 Magnesium 2.0 mg/dL (1.8-2.4) 12/31/17 08:00 Total Bilirubin 0.6 mg/dl (0.2-1.0) 12/31/17 08:00 AST 22 U/L (10-42) 12/31/17 08:00 ALT 12 U/L (10-40) D 12/31/17 08:00 Alkaline Phosphatase 56 U/L (32-92) D 12/31/17 08:00 Total Protein 5.5 g/dl (6.4-8.3) L 12/31/17 08:00 Albumin 2.7 g/dl (3.5-5.0) L 12/31/17 08:00 Active Medications Generic Name Dose Route Start Last Admin Trade Name Heather PRN Reason Stop Dose Admin Acetaminophen 650 mg 12/30/17 22:28 01/01/18 05:59 Tylenol - PO 650 mg Q6H PRN Administration FEVER Calcium Carbonate/Cholecalciferol 1 tab 12/30/17 22:00 12/31/17 21:17 Os-Ramesh 500+D - PO 1 tab BID SHREYAS Administration Enoxaparin Sodium 40 mg 12/31/17 10:00 12/31/17 09:03 Lovenox - SQ 40 mg DAILY SHREYAS Administration Ferrous Sulfate 325 mg 12/30/17 17:30 01/01/18 08:13 Feosol - PO 325 mg BIDWM SHREYAS Administration Multivitamins/Minerals/Vitamin C 1 tab 12/31/17 10:00 12/31/17 09:03 Tab-A-Vit - PO 1 tab DAILY SHREYAS Administration Oxycodone HCl 2.5 mg 12/30/17 22:27 Roxicodone - PO Q6H PRN PAIN LEVEL 1-5 Oxycodone HCl 5 mg 12/30/17 22:27 01/01/18 08:13 Roxicodone - PO 5 mg Q6H PRN Administration PAIN LEVEL 6-10 Microbiology 12/29/17 08:00 Urine - Urine Clean Catch Urine Culture - Final Contaminated: Please Repeat IMAGING chest xray 12/31/17: no infilitrate no effusion noted ray of left hip/pelvis: +femoral neck fracture ASSESSMENT/PLAN: 1) MS Left hip fracture s/p hemiarthroplasty, POD #2 - prn pain medication - physical therapy-->weigt bearing as tolerated - incentive spirometer 2) ID fever - tmax 101.5, leukocytosis is downtrending, urine culture (repeat) pending, cxr reviewed, pending blood culture - pt does report increased urinary urgency since yesterday, will start rocephin pending culture - continue to trend wbc and fever curve 3) heme Acute blood loss anemia - secondary to recent orthopedic surgery, repeat hgb 7.9, close following, will transfuse if less than 7 - continue iron supplement *Hypomagnesemia- resolved - s/p replacement - will f/u on Folding Machine Setter * F/E/N: Regular diet Replace electrolytes as needed *DVT prophylaxis: subq Lovenox Dispo: Pt is requesting snf for short term rehab, discussed with older adult social work specialist, pt is not medically stable for discharge.Requires Inpatient Care. Visit type - Emergency Visit Emergency Visit: Yes ED Registration Date: 12/28/17 Care time: The patient presented to the Emergency Department on the above date and was hospitalized for further evaluation of their emergent condition. - New Patient This patient is new to me today: No - Critical Care Critical Care patient: No - Discharge Referral Referred to [facility] Med [facility] No
[2018-01-01 08:27] LABS: BASO % 0.2 % (0-2.0); HEMOGLOBIN 7.9 GM/dl (10.7-15.3); LYMPH % 8.9 % (8-40); MCH 30.2 pg (25.7-33.7); MCHC 33.3 g/dl (32.0-36.0); MEAN PLT VOLUME 8.9 fl (7.5-11.1); NEUT % 80.4 % (42.8-82.8); PLATELET COUNT 232 K/MM3 (134-434); RDW 14.6 % (11.6-15.6); WHITE BLOOD COUNT 12.9 K/mm3 (4.0-10.8)
--- NOTE | 2018-01-01 08:48 | PN ---
Progress Note (short form) - Note Progress Note: Pt lying in bed. Notes some increased feeling of burning in her left foot. Last Vital Signs Temp Pulse Resp BP Pulse Ox 99.1 F 96 H 18 121/56 L 95 01/01/18 06:40 01/01/18 05:00 01/01/18 05:00 01/01/18 05:00 01/01/18 06:13 LLE dressings cdi calves soft NT sensation intact to LT 2+ dp EHL TA 4/5 FHL G S 5/5 Abnormal Lab Results 12/31/17 12/31/17 12/31/17 08:00 08:00 20:00 WBC 14.2 H RBC 2.97 L Hgb 8.9 L Hct 27.2 L Neutrophils % 83.8 H Lymphocytes % 7.6 L Creatinine 0.5 L Calcium 8.3 L Total Protein 5.5 L Albumin 2.7 L Urine Blood Trace-intact H 01/01/18 07:20 WBC 12.9 H RBC 2.60 L Hgb 7.9 L Hct 23.6 L Neutrophils % Lymphocytes % Creatinine Calcium Total Protein Albumin Urine Blood a/p POD 3 L hip hemiarthroplasty -pain control -dvt proph -despite hct drop pt is hemodynamically stable and will observe for now -oob/PT -f/u urine studies -pt now AF but will observe for fever today - WBC trending down
[2018-01-01] MEDS: ENOXAPARIN NA (PORCINE) 40 MG/0.4 ML DISP.SYRIN SQ SCH (10:19)
[2018-01-01] MEDS: CALCIUM 500MG/VIT-D 200 UNITS COMBO TABLET (FP) PO SCH ×2 (10:20→21:24)
[2018-01-01] MEDS: CEFTRIAXONE 1 GM/50 ML BAG IVPB SCH (10:20)
[2018-01-01] MEDS: MULTIVITAMINS (DAILY MVI) TABLET (FP) PO SCH (10:20)
--- NOTE | 2018-01-01 11:16 | CONS ---
DATE OF CONSULTATION: DATE OF DICTATION: 12/30/2017 TIME: 10 a.m. CHIEF COMPLAINT: Left hip injury. HISTORY OF PRESENT ILLNESS: This is a pleasant 87-year-old female who had suffered a fall on to her left side. She was found to have a displaced basicervical hip fracture and orthopedic consultation was called. She notes only pain in the hip. She denies any loss of consciousness. She denies pain in any other joints. She denies any radiating pain, numbness or tingling. PAST MEDICAL HISTORY: Denies. PAST SURGICAL HISTORY: Significant for right total hip. SOCIAL HISTORY: Denies any alcohol, tobacco or drugs. FAMILY HISTORY: Noncontributory. ALLERGIES: No known drug allergies. MEDICATIONS: No home medications. REVIEW OF SYMPTOMS: Negative for any fever, chills, weakness, rhinorrhea, congestion or throat pain, chest pain, syncope or palpitations, shortness of breath, cough or dyspnea, abdominal pain, distention or nausea. PHYSICAL EXAMINATION: General: This is a well-appearing female in no acute distress. She is alert and oriented x3. She is seen lying on a hospital stretcher. Extremities: The left lower extremity is shortened and externally rotated. The knee is nontender. The ankle is nontender. Distally sensation is intact to light touch. DP pulse 2+. Distal motor 5/5. RADIOGRAPHS: Reviewed, demonstrating a displaced basicervical femoral neck fracture with extension both into the neck and into the greater and lesser trochanters with displacement. LABORATORY RESULTS: Reviewed, demonstrating possible mild UA. ASSESSMENT: Left basicervical femoral neck fracture. PLAN: I reviewed today's findings with the patient. I advise that she has suffered a comminuted and displaced fracture to her left hip. We discussed the option of nonoperative care with prolonged bedrest. We reviewed operative treatment which would best be done with a surgical procedure. We discussed surgical options including IM nail which given the comminution present with this fracture we believe to have resulted in significant shortening and possible failure of fixation or AVN. Discussed the option of hemiarthroplasty versus total hip arthroplasty. I reviewed the hemiarthroplasty involves a shorter surgery with less blood loss, less risk of dislocation. There is a greater chance of postoperative pain in the hip. Discussed the option of total hip arthroplasty which involves a little bit more surgery and more risk of dislocation and increased blood loss. Given that she is a household ambulator with a walker and was not experiencing any hip arthritis pain prior to this, I recommend that a hemiarthroplasty is the best option. After addressing the patient's questions she elected for this. We did discuss surgical risks in detail including bleeding, infection, neurovascular injury, need for further surgery, postoperative pain and stiffness, osteoarthritis, limb length discrepancy or rotational deformity, hip instability, failure, prosthetic fracture. We reviewed medical risks such as heart attack, stroke, DVT, PE and . I reviewed the postoperative rehabilitation protocol. I addressed all the patient's questions and concerns. We also reviewed the use of perioperative DVT and antibiotic prophylaxis. The patient voiced understanding and is electing to proceed surgically. She will be brought to the OR later today. KASHIF SANTILLAN M.D. [id number]
--- NOTE | 2018-01-01 11:49 | SURG ---
Surgery Sheet Rock Hanger Note Sheet Rock Hanger: Earline Figueredo PA-C Date of Service: 12/29/17 Diagnosis: Left hip basicervcial fracture Procedure: left hip-hemiarthroplasty I was present for the entirety of the operative procedure. For further detail, please refer to operative report. Visit type - Case Type Case Type: ED Admission - Emergency Emergency Visit: Yes ED Registration Date: 12/28/17 Care time: The patient presented to the Emergency Department on the above date and was hospitalized for further evaluation of their emergent condition. - New patient This patient is new to me today: Yes Date on this admission: 12/29/17
[2018-01-01] MEDS: DOCUSATE SODIUM 100 MG CAPSULE (FP) PO SCH ×2 (13:42→21:24)
[2018-01-01] MEDS ORDERED: SENNOSIDES 8.6MG TABLET (FP) PO SCH (22:00)
[2018-01-01 22:49] VITALS: TEMP 99
[2018-01-02] MEDS: DOCUSATE SODIUM 100 MG CAPSULE (FP) PO SCH (05:47)
[2018-01-02 06:53] VITALS: BP 129/54; PULSE 90
[2018-01-02] MEDS: oxyCODONE HCL 5 MG TABLET PO PRN (08:00)
[2018-01-02 08:38] LABS: ALBUMIN 2.2 g/dl (3.5-5.0); ALK PHOS 48 U/L (32-92); ANION GAP 6 MMOL/L (8-16); BILIRUBIN,TOTAL 0.6 mg/dl (0.2-1.0); BLOOD UREA NITROGEN 23 mg/dl (7-18); CALCIUM 8.3 mg/dl (8.4-10.2); CHLORIDE 103 mmol/L (98-107); CO2 28 mmol/L (22-28); CREATININE 0.6 mg/dl (0.6-1.3); GLUCOSE,RANDOM 98 mg/dl (74-106); POTASSIUM 3.9 mmol/L (3.5-5.1); SGOT/AST 19 U/L (10-42); SGPT/ALT 14 U/L (10-40); SODIUM 137 mmol/L (136-145); TOT PROT 5.2 g/dl (6.4-8.3)
[2018-01-02 08:49] LABS: HEMATOCRIT 22.1 % (32.4-45.2); HEMOGLOBIN 7.5 GM/dl (10.7-15.3); MCH 30.7 pg (25.7-33.7); MEAN CELL VOLUME 90.2 fl (80-96); MEAN PLT VOLUME 8.1 fl (7.5-11.1); PLATELET COUNT 270 K/MM3 (134-434); RBC 2.45 M/mm3 (3.60-5.2); RDW 14.2 % (11.6-15.6); WHITE BLOOD COUNT 9.6 K/mm3 (4.0-10.8)
[2018-01-02] MEDS ORDERED: MAGNESIUM HYDROX 2400MG/30ML ORAL SUSPENSION 30 ML CUP PO PRN (09:06)
[2018-01-02] MEDS: CEFTRIAXONE 1 GM/50 ML BAG IVPB SCH (09:17)
[2018-01-02] MEDS: FERROUS SO4 325 MG TABLET (FP) PO SCH (09:18)
[2018-01-02] MEDS: CALCIUM 500MG/VIT-D 200 UNITS COMBO TABLET (FP) PO SCH (09:18)
[2018-01-02] MEDS: ENOXAPARIN NA (PORCINE) 40 MG/0.4 ML DISP.SYRIN SQ SCH (09:18)
[2018-01-02] MEDS: MULTIVITAMINS (DAILY MVI) TABLET (FP) PO SCH (09:19)
[2018-01-02] MEDS: ACETAMINOPHEN 325 MG TABLET (FP) PO PRN (09:20)
--- NOTE | 2018-01-02 11:35 | DS ---
Physical Exam: SUBJECTIVE: Patient seen and examined, sitting up in bed, tolerating diet, reports pain to the left lower extremity upon movement, denies any paresthesia to the extremity. OBJECTIVE:Patient is a 87 y/o female with a past surgical history of a right hip replacement. She reports yesterday (12/28/17) she tripped and fell onto her left hip. Patient is able to recall the full incident in detail and denies striking her head. Of note, patient does report feeling off balance within the past several months and was evaluated by a neurologist at [facility]. She underwent head ct and mri of brain which resulted as negative as per patient. She reports left hip pain and was brought to the emergency department for further evaluation. ER course was notable for: (1)xray of left hip/pelvis: +femoral neck fracture (2)chest xray: no infilitrate no effusions noted (3)ekg nsr Vital Signs Period Temp Pulse Resp BP Sys/Downing Pulse Ox Last 24 Hr 97.3 F-99.0 F 79-103 16-20 110-132/50-66 95-97 PHYSICAL EXAM GENERAL: The patient is awake, alert, and fully oriented, in no acute distress. HEAD: Normal with no signs of trauma. EYES: PERRL, extraocular movements intact, sclera anicteric, conjunctiva clear. No ptosis. ENT: Ears normal, nares patent, oropharynx clear without exudates, moist mucous membranes. NECK: Trachea midline, full range of motion, supple. LUNGS: Breath sounds equal, clear to auscultation bilaterally, no wheezes, no crackles, no accessory muscle use. HEART: Regular rate and rhythm, S1, S2 without murmur, rub or gallop. ABDOMEN: Soft, nontender, nondistended, normoactive bowel sounds, no guarding, no rebound, no hepatosplenomegaly, no masses. EXTREMITIES: 2+ pulses, warm, well-perfused, no edema. LEFT LOWER EXTREMITY: aguacel dressing to left lateral hip, less than 3 second cappillary refill, +3 pedal pulse NEUROLOGICAL: Cranial nerves II through XII grossly intact. Normal speech, gait not observed. PSYCH: Normal mood, normal affect. SKIN: Warm, dry, normal turgor, no rashes or lesions noted LABS Laboratory Results - last 24 hr 01/02/18 01/02/18 07:56 07:56 WBC 9.6 RBC 2.45 L Hgb 7.5 L Hct 22.1 L MCV 90.2 MCH 30.7 MCHC 34.0 RDW 14.2 Plt Count 270 MPV 8.1 Sodium 137 Potassium 3.9 Chloride 103 Carbon Dioxide 28 Anion Gap 6 L BUN 23 H Creatinine 0.6 Creat Clearance w eGFR > 60 Random Glucose 98 Calcium 8.3 L Total Bilirubin 0.6 AST 19 ALT 14 Alkaline Phosphatase 48 Total Protein 5.2 L Albumin 2.2 L Microbiology 12/31/17 20:00 Urine - Urine - Catheterized Urine Culture - Final NO GROWTH OBTAINED 12/31/17 17:55 Blood - Peripheral Venous Blood Culture - Preliminary NO GROWTH OBTAINED AFTER 24 HOURS, INCUBATION TO CONTINUE FOR 4 DAYS. 12/31/17 17:55 Blood - Peripheral Venous Blood Culture - Preliminary NO GROWTH OBTAINED AFTER 24 HOURS, INCUBATION TO CONTINUE FOR 4 DAYS. 12/29/17 08:00 Urine - Urine Clean Catch Urine Culture - Final Contaminated: Please Repeat IMAGING chest xray 12/31/17: no infilitrate no effusion noted xray of left hip/pelvis: +femoral neck fracture HOSPITAL COURSE: Patient was admitted from the emergency department to the medical surgical floor status post mechanical fall on 12/29/2017. Orthopedic surgeon Dr. Eliazar Ledbetter was consulted on hospital day 1. Patient underwent a left hemiarthroplasty on 12/29/2017. She ambulated on postoperative day one with the assistance of a physical therapist. Patient was noted to ambulate 5 feet with a walker and person assist. Recommendation was made for inpatient short- term rehabilitation. Pain was controlled with both narcotic and nonnarcotic analgesics. Of note urinalysis upon admission was noted to have 1+ leukocytes In addition patient reports increased urinary frequency and urgency. She was treated for an acute urinary tract infection with Rocephin. On postoperative day 2 patient was noted to have fever 101.5 with leukocytosis, blood and urine culture resulted as negative. Repeat chest x-ray completed on December [id number] was negative for any infiltrates or effusions. Patient is afebrile leukocytosis has resolved. Acute blood loss anemia noted secondary to recent orthopedic surgery. Patient is asymptomatic. PLAN: - Lengthy discussion with patient and son atient will be transferred to short- term rehabilitation - keflex 500mg po bid for 7 days - Case discussed with patient's primary care physician Dr.A Meek, agrees with plan strict follow-up with primary care physician within one week after discharge for short-term rehabilitation - Strict follow-up with orthopedist Dr. Ledbetter within 1 week - return precautions reviewed with patient. Date of Admission:12/28/17 Date of Discharge: 01/02/18 Minutes to complete discharge: 45 Discharge Summary Reason For Visit: FALL Current Active Problems Basicervical fracture of neck of left femur (Acute) Hip fracture (Acute) Condition: Guarded - Instructions Referrals: Zachery Meek MD [Primary Care Provider] - - Home Medications Comprehensive Discharge Medication List: Ambulatory Orders Aspirin [Ecotrin] 81 mg PO DAILY 12/28/17 RX: Ibuprofen 400 mg PO ONCE 12/28/17 This patient is new to me today: No Emergency Visit: Yes ED Registration Date: 12/28/17 Care time: The patient presented to the Emergency Department on the above date and was hospitalized for further evaluation of their emergent condition. Critical Care patient: No - Discharge Referral Referred to [facility] Med [facility].C[facility] Yes Physician Referral: Zachery Meek MD (Int Med)
[2018-01-02] MEDS ORDERED: LACTOBACILLUS ACIDOPHILUS 1 TABLET PO SCH (12:30)
--- NOTE | 2018-01-08 11:13 | PATH ---
Surgical Pathology Report Patient Name: JUNIOR SOUZA Med. Rec. #: [id number] /Age/Gender: 1930 (Age: 87) / F Account: [id number] Location: [facility] MED-SURG Taken: 12/29/2017 Received: 12/29/2017 Reported: 01/08/2018 Physicians: Eliazar Ledbetter M.D. Specimen(s) Received LEFT FEMORAL HEAD Clinical History Left femoral neck fracture Final Diagnosis FEMORAL HEAD, LEFT, TOTAL HIP REPLACEMENT: FRACTURE (CLINICAL). DEGENERATIVE JOINT DISEASE. Electronically Signed Shannon Zavaleta M.D. Gross Description Received in formalin, labeled "left femoral head," is a 4.5 x 4.5 x 4.0 cm. femoral head with a 2.3 cm in length portion of femoral neck attached. The margin of resection is red-brown, jagged and hemorrhagic. No areas of eburnation are identified. The articular surface is wills-yellow and diffusely granular. The underlying trabecular bone is yellow, hard and focally hemorrhagic. A school admissions representative section is submitted in one cassette, following decalcification. /01/01/2018 [facility]
== END 2018-01-02 13:40 | DRG 470 ==
LOC: FER 19:45 → UNDOADMIN 23:27 → FM/S 23:27 → UNDOADMIN 23:42 → FM/S 12-29 10:00 → UNDOADMIN 12-29 19:14 → FM/S 12-29 19:14
PROVIDERS: ADMIT Internal Medicine; ATTEND Nurse Practitioner Family
PROC: 0SRS019 Replacement of Left Hip Joint, Femoral Surface with Metal Synthetic Substitute, Cemented, Open Approach (ICD-10-PCS; principal; 2017-12-29 15:30)
DX: S72.112A Displaced fracture of greater trochanter of left femur, initial encounter for closed fracture (principal); D62 Acute posthemorrhagic anemia; N39.0 Urinary tract infection, site not specified; W18.39XA Other fall on same level, initial encounter; Y92.018 Other place in single-family (private) house as the place of occurrence of the external cause; S72.122A Displaced fracture of lesser trochanter of left femur, initial encounter for closed fracture; E83.42 Hypomagnesemia; Y93.89 Activity, other specified; Y99.8 Other external cause status; Z96.641 Presence of right artificial hip joint
CPT/HCPCS: 36415; 71045-TC-FY; 73502-TC-LT-FY; 73523-TC-FY; 80048; 80053; 81003; 81015; 83605; 83735; 84100; 85025; 85027; 85610; 86850; 86900; 86901; 87040; 87086; 88304-TC; 88311-TC; 93005; 94760; 97116-GP; 97162-GP; 99283-25; J0131; J1644